=== PATIENT | male | born 1995 | race Caucasian/White ===

== ENCOUNTER 2020-09-13 19:15 | Inpatient (IN) ==
[2020-09-13] MEDS ORDERED: KETOROLAC TROMETHAMINE 15 MG/ML VIAL IV ONE (19:40)
[2020-09-13] MEDS ORDERED: SODIUM CHLORIDE 0.9% 1000ML 2,000 ML IV ONE ×2 (19:40→20:22)
[2020-09-13] MEDS ORDERED: ONDANSETRON INJ 2 MG/ML 2 ML VIAL IV STA ×3 (19:40→21:23)
[2020-09-13] MEDS ORDERED: MoRPHine SULFATE 10 MG/ML CARP/VIAL IV STA (19:46)
--- NOTE | 2020-09-13 19:50 | Emergency Department Note ---
Impression & Plan Renal colic, Kidney stone, Hydronephrosis, Vomiting, Acute hypokalemia ED Provider Note NAME: FRIDA ESCOBEDO AGE: 24 SEX: M : 1995 ARRIVES VIA: Walk-In INFORMANT: Patient ED PROVIDER(S): Fei Taylor DO CHIEF COMPLAINT: Right flank pain HPI: Patient is a 24-year-old male who presents to the ER for right flank pain. This started today around 5 PM. It is radiating out from the back to the right side and goes down to the testicle. He has had 2 kidney stones before. This feels consistent with his previous stones. He admits to nausea and vomiting. Pain is a 9 out of 10. Sharp and stabbing in nature. No other exacerbating or remitting factors. No fevers. No dysuria, urgency or frequency. ROS: See above HPI for pertinent positives & negatives. A total of 10 systems reviewed and were otherwise negative. PAST MEDICAL HISTORY:See Below PAST SURGICAL HISTORY:See Below FAMILY HISTORY:See Below SOCIAL HISTORY:See Below HOME MEDICATIONS:See Below ALLERGIES:See Below VITALS:See Below PHYSICAL EXAMINATION: GENERAL: Sitting up in bed, alert, significant distress, pale EYE EXAM: normal conjunctiva. OROPHARYNX: Mask in place LUNGS: Clear to auscultation. Normal chest wall mechanics HEART: no murmurs, S1 normal and S2 normal ABDOMEN: abdomen soft, non-tender, normo-active bowel sounds, no masses, no rebound or guarding. BACK: Back is symmetrical on inspection and there is no deformity, no midline tenderness, no CVA tenderness. UPPER EXTREMITIES: upper extremities are grossly normal. LOWER EXTREMITIES: No pitting edema. NEURO EXAM: Normal sensorium, cranial nerves II-XII grossly intact, normal speech, no gross weakness of arms, no gross weakness of legs. MEDICAL DECISION MAKING: Patient is a 24-year-old male who presents the ER for severe right flank pain. History of previous kidney stones. IV was established blood work was obtained. Labs show no significant leukocytosis or anemia. BMP with mild hypokalemia. LFTs bilirubin and lipase is unremarkable. Patient was given 3 separate rounds of narcotics as well as Zofran and fluids. He still continued to have a significant on the pain to be extremely nauseated. He was also given IV Toradol. He was discussed with Torsten from urology as well as the hospitalist for further evaluation. Patient was updated bedside. He was Covid tested. Triage Nursing notes reviewed. Limited review of prior medical records performed Vital Signs: reviewed and remarkable for no significant abnormalities Differential diagnosis: Differential diagnoses includes but is not limited to gastritis, peptic ulcer disease, GERD, gallbladder disease, pancreatitis, small bowel obstruction, acute coronary syndrome, pericarditis, ischemic bowel, irritable bowel disease, irritable bowel syndrome, appendicitis, diverticulitis, malignancy, hernia, urinary tract infection, torsion, perforation, trauma, infectious. ER treatment provided: See below Diagnostics interpreted by me: ECG: none Cardiac Monitoring: An order was placed for continuous cardiac monitoring. The monitor shows a rate of 71 with sinus rhythm. Laboratory studies: As stated above and show below. Imaging studies: CT abdomen pelvis shows 5 x 3 mm proximal Consultation(s): Discussed with hospitalist for further evaluation Discussed with Torsten Pollack from urology Procedures: none Critical Care: None Past Med/Surg History Medical History (Updated 09/13/20 @ 21:44 by Fei Taylor DO) Kidney stone Surgical History No pertinent past surgical history Family History Other No pertinent family history in first degree relatives Social History Smoking Status: Never smoker Hx Alcohol Use: Yes Preferred Language: Indonesian current occupational status: student Feels Safe at Home: Yes Allergies Allergies Allergy/AdvReac Type Severity Reaction Status Date / Time No Known Allergies Allergy Verified 09/13/20 21:03 Home Meds Home Medications Medication Instructions Recorded Confirmed multivitamin 1 tab PO DAILY 07/31/19 09/13/20 Results & Data (ED) Vital Signs Vital Signs - 24 hr 09/13/20 19:34 09/13/20 19:54 Temperature 36.9 C Temperature Source Oral Pulse Rate 72 Respiratory Rate 18 Blood Pressure 132/84 Blood Pressure Mean 100 Blood Pressure Position Sitting Pulse Oximetry 96 99 Oxygen Delivery Method Room Air Sepsis Recent Fever Within 48 Hours No Sepsis New/Unexplained Change in Mental Status N/A Sepsis Action Taken by Nursing No Action Required Laboratory Data Result diagrams: 09/13/20 19:47 09/13/20 19:47 Lab Results 09/13/20 09/13/20 Range/Units 19:47 19:47 WBC 8.27 (4.8-10.8) K/uL RBC 5.31 (4.7-6.1) M/uL Hgb 16.1 (14.0-18.0) g/dL Hct 43.9 (42-52) % MCV 82.7 (80-100) fL MCH 30.3 (25-34) pg MCHC 36.7 H (32-36) g/dL RDW Std Deviation 36.1 L (36.4-46.3) fL RDW Coeff of Starr 12.0 (11.5-14.5) % Plt Count 217 (130-400) K/uL MPV 10.0 (7.4-10.4) fL Immature Gran % (Auto) 0.1 % Neut % (Auto) 75.3 % Lymph % (Auto) 18.1 % [place] % (Auto) 5.6 % Eos % (Auto) 0.8 % Baso % (Auto) 0.1 % Neut # (Auto) 6.22 (1.4-6.5) K/uL Lymph # (Auto) 1.50 (1.2-3.4) K/uL Madison # (Auto) 0.46 (0.11-0.59) K/uL Eos # (Auto) 0.07 (0-0.5) K/uL Baso # (Auto) 0.01 (0-0.2) K/uL Immature Gran # (Auto) 0.01 (0.00-0.02) K/uL Sodium 140 (136-145) mmol/L Potassium 3.3 L (3.5-5.1) mmol/L Chloride 107 (98-107) mmol/L Carbon Dioxide 28 (21-32) mmol/L Anion Gap 5.0 (3-11) BUN 16 (7-18) mg/dl Creatinine 1.17 (0.6-1.4) mg/dl Est Cr Clr Drug Dosing 103.7 ml/min Est GFR ( Amer) 100.5 Est GFR (Non-Af Amer) 86.7 BUN/Creatinine Ratio 13.3 (10-20) Glucose 109 H (70-99) mg/dl Calcium 9.7 (8.5-10.1) mg/dl Total Bilirubin 0.9 (0.2-1) mg/dl AST 15 (15-37) U/L ALT 28 (12-78) U/L Alkaline Phosphatase 61 (45-117) U/L Total Protein 8.5 H (6.4-8.2) gm/dl Albumin 4.9 (3.4-5.0) gm/dl Globulin 3.6 (2.5-4.0) gm/dl Albumin/Globulin Ratio 1.4 (0.9-2) Lipase 95 (73-393) U/L Administered Medications Sodium Chloride (Nss 1000ml) 2,000 mls @ 999 mls/hr IV .Q2H1M ONE Stop: 09/13/20 22:22 Last Admin: 09/13/20 21:43 Dose: 999 mls/hr Documented by: [id number] Discontinued Medications Hydromorphone HCl (Hydromorphone Inj 0.5 Mg/0.5 Ml Syr) 0.5 mg IV NOW STA Stop: 09/13/20 21:55 Last Admin: 09/13/20 22:02 Dose: 0.5 mg Documented by: [id number] Sodium Chloride (Nss 1000ml) 2,000 mls @ 999 mls/hr IV .Q2H1M ONE Stop: 09/13/20 21:40 Last Infusion: 09/13/20 21:38 Dose: 0 mls/hr Documented by: [id number] Admin: 09/13/20 19:51 Dose: 999 mls/hr Documented by: [id number] Ketorolac Tromethamine (Ketorolac Tromethamine 15 Mg/Ml Vial) 15 mg IV NOW ONE Stop: 09/13/20 19:41 Last Admin: 09/13/20 19:51 Dose: 15 mg Documented by: [id number] Metoclopramide HCl (Metoclopramide Hcl Inj 5 Mg/Ml 2 Ml Vial) 5 mg IV ONE ONE Stop: 09/13/20 21:55 Last Admin: 09/13/20 22:03 Dose: 5 mg Documented by: [id number] Morphine Sulfate (Morphine Sulfate 10 Mg/Ml Carp/Vial) 6 mg IV NOW STA Stop: 09/13/20 19:47 Last Admin: 09/13/20 19:51 Dose: 6 mg Documented by: [id number] Morphine Sulfate (Morphine Sulfate 4 Mg/Ml 1 Ml Carp\Vial) 4 mg IV NOW STA Stop: 09/13/20 20:45 Last Admin: 09/13/20 20:52 Dose: 4 mg Documented by: [id number] Morphine Sulfate (Morphine Sulfate 4 Mg/Ml 1 Ml Carp\Vial) 6 mg IV NOW STA Stop: 09/13/20 21:24 Last Admin: 09/13/20 21:38 Dose: 6 mg Documented by: [id number] Ondansetron HCl (Ondansetron Inj 2 Mg/Ml 2 Ml Vial) 4 mg IV NOW STA Stop: 09/13/20 19:41 Last Admin: 09/13/20 19:51 Dose: 4 mg Documented by: [id number] Ondansetron HCl (Ondansetron Inj 2 Mg/Ml 2 Ml Vial) 4 mg IV NOW STA Stop: 09/13/20 20:45 Last Admin: 09/13/20 20:52 Dose: 4 mg Documented by: [id number] Ondansetron HCl (Ondansetron Inj 2 Mg/Ml 2 Ml Vial) 4 mg IV NOW STA Stop: 09/13/20 21:24 Last Admin: 09/13/20 21:45 Dose: Not Given Documented by: [id number] Discharge Plan Visit Data Chief Complaint: Kidney Stone Stated Complaint: KIDNEY STONES ED Provider: Fei Taylor Discharge Problem: Renal colic, Kidney stone, Hydronephrosis, Vomiting, Acute hypokalemia Forms Stand Alone Forms: [employer] Prescriptions Prescriptions: No Action multivitamin Tablet 1 tab PO DAILY RF: 0 Discharge Problem: Hydronephrosis Qualifiers: Hydronephrosis type: unspecified Qualified Code(s): N13.30 - Unspecified hydronephrosis Vomiting Qualifiers: Vomiting type: unspecified Vomiting Intractability: unspecified Nausea presence: unspecified Qualified Code(s): R11.10 - Vomiting, unspecified
[2020-09-13 20:00] LABS: Basophils # (auto) 0.01 K/uL (0-0.2); Basophils % (auto) 0.1 %; Eosinophils # (auto) 0.07 K/uL (0-0.5); Eosinophils % (auto) 0.8 %; Hematocrit (blood only) 43.9 % (42-52); Hemoglobin 16.1 g/dL (14.0-18.0); Immature Granulocytes # (auto) 0.01 K/uL (0.00-0.02); Immature Granulocytes % (auto) 0.1 %; Lymphocytes % (auto) 18.1 %; Mean Corpuscular Hemoglobin 30.3 pg (25-34); Mean Corpuscular Hgb Conc 36.7 g/dL (32-36); Mean Corpuscular Volume 82.7 fL (80-100); Monocytes # (auto) 0.46 K/uL (0.11-0.59); Monocytes % (auto) 5.6 %; Neutrophils # (auto) 6.22 K/uL (1.4-6.5); Neutrophils % (auto) 75.3 %; Platelet Count 217 K/uL (130-400); RDW Standard Deviation 36.1 fL (36.4-46.3); Red Blood Count 5.31 M/uL (4.7-6.1); White Blood Count 8.27 K/uL (4.8-10.8)
[2020-09-13 20:18] LABS: Albumin Level 4.9 gm/dl (3.4-5.0); BUN Creatinine Ratio 13.3 (10-20); Calcium 9.7 mg/dl (8.5-10.1); Creatinine Clr Calc Pharmacy 103.7 ml/min; Est GFR (African American) 100.5; Est GFR (Non-African American) 86.7; Potassium 3.3 mmol/L (3.5-5.1)
[2020-09-13 20:21] LABS: Albumin Globulin Ratio 1.4 (0.9-2); Bilirubin,Total 0.9 mg/dl (0.2-1); Globulin 3.6 gm/dl (2.5-4.0); Total Protein 8.5 gm/dl (6.4-8.2)
--- NOTE | 2020-09-13 20:34 | CT Scan Report ---
CT OF THE ABDOMEN AND PELVIS WITHOUT CONTRAST CLINICAL HISTORY: Flank pain. COMPARISON STUDY: CT of the abdomen and pelvis January 22, 2020. Right upper quadrant ultrasound February. TECHNIQUE: Axial images of the abdomen and pelvis were obtained without IV contrast. Images were revi ewed in the axial, sagittal, and coronal planes. Automated exposure control was utilized for the juju dy. A dose lowering technique was utilized adhering to the principles of ALARA. FINDINGS: Lung bases are unremarkable. A 5 mm x 3 mm proximal right ureteral calculus results in mild hydronephrosis. Evaluation of the remainder of the abdomen and pelvis is suboptimal on this unenhanc ed examination. The liver, spleen, adrenal glands and pancreas are unremarkable. There is a splenule. There is no biliary or pancreatic ductal dilatation. No peripancreatic or pericholecystic infiltrati on is present. The appendix is normal. The caliber of small and large bowel is normal. There is no as cites. No lymphadenopathy is present. No acute fracture or suspicious lesion is identified within the visualized skeletal structures. Pelvic calcifications reflect phleboliths. There is a possible punct ate calculus within the lower pole of the right kidney. IMPRESSION: 1. 5 mm x 3 mm proximal right ureteral calculus which results in mild hydronephrosis. 2. Possible punctate calculus within the lower pole of the right kidney. ACT 112: Negative or not required by law. Electronically signed by: Isaías Sheth M.D. 09/13/2020 8:33 PM
[2020-09-13] MEDS ORDERED: MoRPHine SULFATE 4 MG/ML 1 ML CARP\\VIAL IV STA ×2 (20:44→21:23)
[2020-09-13] MEDS ORDERED: LACTATED RINGER'S 1,000 ML IV ONE (21:44)
[2020-09-13] MEDS ORDERED: HYDROmorphone INJ 0.5 MG/0.5 ML SYR IV STA (21:54)
[2020-09-13] MEDS ORDERED: METOCLOPRAMIDE HCL INJ 5 MG/ML 2 ML VIAL IV ONE (21:54)
--- NOTE | 2020-09-13 22:16 | Urology Consultation ---
Date of Consultation September 13, 2020 Assessment & Plan (1) Renal colic: I discussed with the emergency room physician. Plan is to have medical service admit the patient. We would recommend proceeding in the following manner: Continue hydration measures Place on Flomax to help expel kidney stone Continue to provide analgesics Continue to provide antiemetics Make patient n.p.o. after midnight until determination made about possible surgical intervention. History of Present Illness Reason for Consultation: Kidney stone History of Present Illness This is a 24-year-old male who says he was in his usual state of health until about 5:00 PM earlier this evening. He notes that since that time he has had a stabbing pain in his right flank that radiates down his back. He has not had any fevers but has occasional shakes. He denies any cough. He has had associated nausea and vomiting. He does report a previous history of kidney stone on the right side. He notes that this was at least 3 years ago and notes that he was able to successfully pass the kidney stone without intervention. He does feel that the pain he is experiencing at this time is much worse. He presented to the emergency department due to the above-noted complaints. Labs including a CBC where his white blood cell count, hemoglobin, hematocrit, and platelet count were all noted to be within normal range. Was noted to be afebrile. He was not hypotensive. Chemistry profile showed his sodium was 140, potassium 3.3, and his BUN and creatinine were both within the normal range. A Covid test has been ordered and is pending. CT scan of the abdomen pelvis was performed that did show a 5 mm x 3.3 mm proximal right ureteral calculus resulting in mild hydronephrosis. Spite numerous doses of intravenous analgesics and antiemetics the patient was unable to get comfortable enough prompting request for admission by the emergency room physician. He has noted that he has contacted the hospitalist for admission and they have subsequently requested a urology consultation. At the time of my interview the patient was experiencing right flank pain. Allergies Allergy/AdvReac Type Severity Reaction Status Date / Time No Known Allergies Allergy Verified 09/13/20 21:03 Home Medications Medication Instructions Recorded Confirmed Type multivitamin 1 tab PO DAILY 07/31/19 09/13/20 History Patient History Medical History Kidney stone Surgical History No pertinent past surgical history Family History Other No pertinent family history in first degree relatives Social History Smoking Status: Never smoker Hx Alcohol Use: Yes Preferred Language: Cuban current occupational status: student Feels Safe at Home: Yes Review of Systems Constitutional: no fever and no chills Eyes: no diplopia Ear, Nose, Mouth, Throat: no ear pain Respiratory: no cough and no dyspnea Cardiovascular: no chest pain Gastrointestinal: + nausea and + vomiting Genitourinary: + flank pain (Right sided) Musculoskeletal: + back pain (Right flank) Integumentary: no rash Neurologic: no localized weakness Physical Exam Constitutional: well developed and well nourished Eyes: no conjunctival abnormality ENMT: Ears: no hearing impairment Neck: trachea midline Respiratory: normal respiratory effort; no respiratory distress and no labored breathing Breath sounds slightly decreased at bases Cardiovascular: Rate/Rhythm: regular rate and regular rhythm Gastrointestinal (Abdomen): Percussion/Palpation: abdomen soft; abdomen nontender Right CVA tenderness noted with percussion Skin: no rashes, warm and dry Neurologic: moves all extremities Results & Data ([facility]) Vital Signs (Past 12 Hours) Vital Signs Temp Pulse Resp BP Pulse Ox 09/13/20 19:54 99 09/13/20 19:34 36.9 C 72 18 132/84 96 PG Care Time/CCT Total # of Minutes Spent Total Time Spent with Patient: Total time spent is greater than 50% in coordination of care (as documented) at patient's floor/unit and/or counseling patient: Coding Level of Care Code 13181 Inpt Consult Level 5 Diagnoses Renal colic N23
[2020-09-13] MEDS ORDERED: HYDROmorphone INJ 1 MG/ML SYRINGE IV STA (22:36)
[2020-09-13] MEDS ORDERED: TAMSULOSIN HCL 0.4 MG CAP PO ONE (22:54)
--- NOTE | 2020-09-13 23:01 | History & Physical Report ---
Date of Service September 13, 2020 Assessment & Plan (1) Kidney stone: 22-year-old male with a past medical history significant for previous nephrolithiasis admitted for intractable right flank pain secondary to right sided renal stone causing hydronephrosis. Right renal stone: On arrival with right-sided flank pain and difficulty urinating. CTAP shows 5 x 3 mm proximal right ureteral calculus causing mild hydronephrosis. With significant pain despite several doses of morphine and low-dose Dilaudid. Tylenol scheduled, Dilaudid 1 mg IV every 4 hours as needed moderate to severe pain. Urology consult placed, appreciate recommendations. No emergent intervention, urology will see in the morning. N.p.o. for potential intervention. We will start Flomax, LR at 125 mL/hr. No findings on UA suggestive of infection, urine culture ordered. No IV antibiotics at this time. CODE STATUS: Full code FEN GI: N.p.o. for potential urologic intervention, LR at 125 mL/hr DVT prophylaxis: Ad radha. on demand, SCDs while in bed Dispo: MedSurg for pain control, IV fluids, urology consult in a.m. (2) Hydronephrosis: History of Present Illness Chief Complaint: Right-sided flank pain Primary Care Provider: Nevin Polk DO 22-year-old male with a past medical history significant for previous nephrolithiasis presents for right-sided flank pain, difficulty urinating, and nausea since about 5 PM today. Has had kidney stones in the past but reports that the pain is significantly worse during this episode. Does not have any associated fevers or chills, shortness of breath, chest pain, abdominal pain, dysuria, hematuria, urinary urgency or frequency. Regards to his difficulty urinating, he states that he "cannot pee". ER course has included a CT PE which showed 5 mm x 3 mm proximal right ureteral calculus resulting in mild hydronephrosis. No leukocytosis on lab work, UA without findings suggestive of infection, urine culture sent. Of note, the patient has received fairly large amounts of IV morphine and Dilaudid 0.5 mg x 2 without much relief. Allergies Allergy/AdvReac Type Severity Reaction Status Date / Time No Known Allergies Allergy Verified 09/13/20 21:03 Home Medications Medication Instructions Recorded Confirmed Type multivitamin 1 tab PO DAILY 07/31/19 09/13/20 History oxycodone-acetaminophen [Percocet] 1 tab PO Q6H PRN #10 tab 09/14/20 Rx tamsulosin 0.4 mg PO QAM 7 Days #7 cap 09/14/20 Rx Past Med/Surg History Medical History (Updated 09/14/20 @ 09:50 by JANEY Armijo) Kidney stone Surgical History No pertinent past surgical history Family History Other No pertinent family history in first degree relatives Social History Smoking Status: Never smoker Hx Alcohol Use: No Preferred Language: Italian Communication Ability: Effective Pipe Connector Required: No Beliefs That Will Affect Care: None Current Living Situation: Alone current occupational status: student Feels Safe at Home: No Assistive Devices: None Review of Systems Review of Systems: All systems reviewed & are unremarkable except as noted in HPI & below Constitutional: no fever, no chills and no malaise Respiratory: no cough and no dyspnea Cardiovascular: no chest pain, no palpitations and no edema Gastrointestinal: no abdominal pain, no constipation and no diarrhea/loose stools Genitourinary: + flank pain (Extends down around the right pelvis into right t esticular area) Physical Exam Constitutional: WD/WN, vitals as above Uncomfortable appearing, but nontoxic Eyes: PERRL, conjunctivae normal, anicteric sclerae ENMT: external ear and nose normal, oropharynx normal Neck: normal visual inspection Respiratory: normal respiratory effort, lungs clear to auscultation Cardiovascular: RRR, no murmur, no edema Gastrointestinal (Abdomen): normal bowel sounds, soft, nontender, no hepatosplenomegaly Musculoskeletal: no cyanosis or clubbing, extremities motor strength 5/5 Skin: no rashes, warm and dry Neurologic: AAOx3, normal speech. No tremor. No gross sensory or motor deficits. Psychiatric: Orientation: alert and oriented x 3 Affect: + anxious affect Results & Data Results & Data ([facility]) Vital Signs (Past 12 Hours) Vital Signs Temp Pulse Resp BP Pulse Ox 09/13/20 22:08 76 16 123/61 98 09/13/20 21:00 61 19 122/70 96 09/13/20 19:54 99 09/13/20 19:34 36.9 C 72 18 132/84 96 Code Status & VTE Plan VTE Prophylaxis Plan VTE Prophylaxis will be ordered: Yes Supervising Physician Co-Signing Physician Notes Attending addendum: I have physically seen this patient, have supervised the medical residents activities, and agree with the H&P unless as otherwise noted. Assessment and Plan: 5 x 3 mm proximal right ureteral calculus/mild right hydroureteronephrosis- NPO Follow urine culture and sensitivity Empiric ceftriaxone 1 g IV daily Dilaudid 1 mg IV every 4 hours as needed severe pain LR at 125 mils per hour Consult urology Remaining orders and notations as noted Resident Activity Tracking Resident Involvement: Resident Care Provided Care Provided: Adult Hospital Medicine (1) Hydronephrosis Hydronephrosis type: unspecified Qualified Code(s): N13.30 - Unspecified hydronephrosis
[2020-09-13] MEDS ORDERED: ONDANSETRON INJ 2 MG/ML 2 ML VIAL IV PRN (23:59)
[2020-09-13] MEDS ORDERED: ACETAMINOPHEN 1000 MG/100 ML IV IV SCH (23:59)
[2020-09-13] MEDS ORDERED: ACETAMINOPHEN 325 MG TAB PO PRN (23:59)
[2020-09-14] MEDS ORDERED: INFLUENZA VIRUS QUAD VACCINE 0.5 ML SYR IM ONE (00:27)
[2020-09-14] MEDS ORDERED: HYDROmorphone INJ 1 MG/ML SYRINGE IV PRN (00:27)
[2020-09-14] MEDS ORDERED: INFLUENZA ADMINISTRATION CHARGE ONE (00:27)
[2020-09-14] MEDS: LACTATED RINGER'S 1,000 ML IV SCH ×2 (00:40→08:42)
[2020-09-14] MEDS: ACETAMINOPHEN 1,000 MG/100 ML VIAL IV SCH ×2 (00:45→08:41)
[2020-09-14 06:08] LABS: Appearance Urine Clear (Clear); Bilirubin Urine Negative (Negative); Blood Urine 3+ (Negative); Color Urine Yellow; Glucose Urine UA Negative (Negative); Ketones Urine 1+ (Negative); Leukocyte Esterase Urine Negative (Negative); Nitrite Urine Negative (Negative); Protein Urine Negative (Negative); Specific Gravity Urine 1.025 (1.000-1.030); Urobilinogen Urine Negative (Negative)
[2020-09-14 06:14] LABS: Amphetamines+Metham, Urine Neg (Neg); Barbiturates, Urine Neg (Neg); Benzodiazepine, Urine Neg (Neg); Cocaine, Urine Neg (Neg); MDMA (Ecstacy), Urine Neg (Neg); Methadone, Urine Neg (Neg); Opiate, Urine Pos (Neg); Phencyclidine, Urine Neg (Neg)
[2020-09-14 06:30] LABS: Bacteria Urine Negative (Negative); Epithelial Cell Urine 0-5 /lpf (0-5); WBC Urine 0-5 /hpf (0-5)
--- NOTE | 2020-09-14 07:12 | Hospitalist Progress Note ---
Date of Service September 14, 2020 Assessment & Plan Admission and Anticipated Discharge Date Admission Date: September 13, 2020 Results & Data Results & Data ([facility]) Vital Signs (Past 12 Hours) Vital Signs Temp Pulse Pulse Resp BP BP Pulse Ox 09/14/20 03:09 36.6 C 75 17 114/74 96 09/14/20 00:10 81 09/13/20 23:50 36.5 C 67 20 119/78 95 09/13/20 22:30 83 19 118/72 96 09/13/20 22:08 76 16 123/61 98 09/13/20 21:00 61 19 122/70 96 09/13/20 19:54 99 09/13/20 19:34 36.9 C 72 18 132/84 96
[2020-09-14] MEDS ORDERED: TAMSULOSIN HCL 0.4 MG CAP PO SCH (09:00)
--- NOTE | 2020-09-14 09:06 | XRay Report ---
KUB CLINICAL HISTORY: Right ureteral stone. FINDINGS: 2 AP supine abdominal radiographs are correlated with abdominal CT dated 09/13/2020. There is a nonobstructed abdominal bowel gas pattern. No calcifications are seen projecting over either kidne y or along the course of the ureters. The small right ureteral calculus seen on yesterday's CT scan i s not clearly visualized. Numerous phleboliths are noted in the pelvis. The bony structures appear in tact. IMPRESSION: 1. No renal or ureteral calculi are identified. 2. The small right ureteral stone seen on yesterday's CT scan was not visualized. Electronically signed by: Tj Hastings M.D. 09/14/2020 9:05 AM
--- NOTE | 2020-09-14 09:48 | Urology Progress Note ---
Date of Service September 14, 2020 Assessment & Plan (1) Calculus of proximal right ureter: (2) Renal colic: 24 year-old male patient admitted with right flank pain with associated n/v secondary to obstructing 5 mm right proximal ureteral calculus. -Patient with improvement in pain and nausea. -Remains afebrile. -Labs reviewed, white count and creatinine stable. Urine not indicative of infection. -KUB without visualization of stone. -Discussed treatment options including surgical intervention while inpatient vs outpatient management with max expulsion therapy. -As his symptoms have improved, he does prefer outpatient management. -Recommend home with Tamsulosin, antiemetics, and pain control. -Continue to strain urine after discharge. -Will arrange follow-up as outpatient with urology service within the next week. -Expected clinical course reviewed with patient. Reviewed in detail signs/symptoms that would warrant return to ER. -He is in agreement with plan, all questions answered. Thank you for allowing us to participate in the acute care of Mr. Aguero. Please reconsult us with additional questions, concerns or changes in patient status. Admission and Anticipated Discharge Date Admission Date: September 13, 2020 Subjective Patient examined at bedside - alert, awake, comfortable. Non-toxic in appearance. Reports his right-sided flank pain has subsided. Has not required any pain medication since around 10:00 pm last evening. Does report feelings of bloating/indigestion. Denies abdominal pain. Denies fevers or chills. Denies dysuria or hematuria. Has had some urinary frequency, denies urgency. He is no longer experiencing nausea, denies vomiting since hospital admission. Has been out of bed without dizziness/lightheadedness. Has been NPO since midnight. Of note, he does have a history of stones, did pass stones spontaneously x2 without surgical intervention. Parents with history of kidney stones. Chart review: Afebrile Wbc 8.27 Hgb 16.1 Creatinine 0.17 Urinalysis not indicative of infection. KUB today reviewed, no visualization of stone. Denies additional urologic concerns today. Review of Systems Constitutional: as per Subjective / HPI; no fever and no chills Gastrointestinal: as per Subjective / HPI; no nausea and no vomiting Genitourinary: + as per Subjective / HPI Physical Exam Constitutional: well developed and well nourished; no acute distress and not i ll appearing Respiratory: normal respiratory effort and able to speak in complete sentences; no respiratory distress and no audible wheezes Gastrointestinal (Abdomen): Inspection/Auscultation: abdomen normal to inspection; abdomen not distended Percussion/Palpation: abdomen soft; abdomen nontender and no guarding Psychiatric: Orientation: alert, oriented x 3 and cooperative Affect: euthymic affect Genitourinary: no CVA tenderness Results & Data ([facility]) Vital Signs (Past 12 Hours) Vital Signs Temp Pulse Pulse Resp BP BP Pulse Ox 09/14/20 07:29 36.8 C 77 18 108/63 94 09/14/20 03:09 36.6 C 75 17 114/74 96 09/14/20 00:10 81 09/13/20 23:50 36.5 C 67 20 119/78 95 09/13/20 22:30 83 19 118/72 96 09/13/20 22:08 76 16 123/61 98 PG Care Time/CCT Total # of Minutes Spent Total Time Spent with Patient: Total time spent is greater than 50% in coordination of care (as documented) at patient's floor/unit and/or counseling patient: Coding Level of Care Code 64932 Subseq Hosp Care Lvl 2 Diagnoses Calculus of proximal right ureter N20.1 Renal colic N23
--- NOTE | 2020-09-14 11:28 | Discharge Summary ---
Date of Service September 14, 2020 Admission HPI Per Admitting Provider 22-year-old male with a past medical history significant for previous nephrolithiasis presents for right-sided flank pain, difficulty urinating, and nausea since about 5 PM today. Has had kidney stones in the past but reports that the pain is significantly worse during this episode. Does not have any associated fevers or chills, shortness of breath, chest pain, abdominal pain, dysuria, hematuria, urinary urgency or frequency. Regards to his difficulty urinating, he states that he "cannot pee". ER course has included a CT PE which showed 5 mm x 3 mm proximal right ureteral calculus resulting in mild hydronephrosis. No leukocytosis on lab work, UA without findings suggestive of infection, urine culture sent. Of note, the patient has received fairly large amounts of IV morphine and Dilaudid 0.5 mg x 2 without much relief. Admission Exam Per Admitting Provider Constitutional: WD/WN, vitals as above Uncomfortable appearing, but nontoxic Eyes: PERRL, conjunctivae normal, anicteric sclerae ENMT: external ear and nose normal, oropharynx normal Neck: normal visual inspection Respiratory: normal respiratory effort, lungs clear to auscultation Cardiovascular: RRR, no murmur, no edema Gastrointestinal (Abdomen): normal bowel sounds, soft, nontender, no hepatosplenomegaly Musculoskeletal: no cyanosis or clubbing, extremities motor strength 5/5 Skin: no rashes, warm and dry Neurologic: AAOx3, normal speech. No tremor. No gross sensory or motor deficits. Psychiatric: Orientation: alert and oriented x 3 Affect: + anxious affect Principal Diagnosis Ureterolithiasis Discharge Exam Constitutional WD/WN, vitals as above Eyes PERRL, conjunctivae normal, anicteric sclerae ENMT external ear and nose normal, oropharynx normal Respiratory normal respiratory effort, lungs clear to auscultation Cardiovascular RRR, no murmur, no edema Gastrointestinal (Abdomen) normal bowel sounds, soft, nontender, no hepatosplenomegaly Genitourinary + CVA tenderness (Right) Discharge Data Allergies Allergy/AdvReac Type Severity Reaction Status Date / Time No Known Allergies Allergy Verified 09/13/20 21:03 Consultations 09/13/20 21:23 ED Decision to Admit Stat 09/14/20 09:10 Consult Urology Routine Ordered Studies 09/13/20 19:40 CT abd pelvis wo con Stat Hospital Course (1) Kidney stone: 22-year-old male with a past medical history significant for previous nephrolithiasis admitted for intractable right flank pain secondary to right sided renal stone causing hydronephrosis. Right renal stone: On arrival with right-sided flank pain and difficulty urinating. CT AP shows 5 x 3 mm proximal right ureteral calculus causing mild hydronephrosis. With significant pain despite several doses of morphine and low-dose Dilaudid. Tylenol scheduled, Dilaudid 1 mg IV every 4 hours as needed moderate to severe pain while inpatient Urology consult placed, appreciate recommendations. KUB in AM without obvious signs of stone, unsure if passage of stone had occurred though none was caught in filter No findings on UA suggestive of infection, urine culture ordered. No IV antibiotics at this time. Patient discharged home with Flomax, Percocet for pain control Follow up with Urology in 1 week. Total Time Total Time Spent Total Time Spent (In Minutes): Less than 30 Discharge Plan Discharge Items Patient Disposition: Home - Self-Care Reason For Visit: INTRACTABLE FLANK PAIN, KIDNEY STONE Discharge Diagnosis: Kidney Stone Activity: Resume your previous activity Non-emergency contact: Primary Care Provider and Urologist Call non-emergency contact if: you have any medication questions, your symptoms worsen and your pain is not controlled Follow-up/Referrals: Hoda Gregg PA-C [Physician Automation/Controls Manager] - 09/19/20 2:00 pm Nevin Polk, [Primary Care Provider] - Diet: Regular Addtl Attending Provider Instructions: Mr. Aguero, It was our pleasure caring for you at [facility] from 09/13 - 09/14/20 for your kidney stone. While inpatient you were given IV pain medications and IV nausea controlling medications. You were evaluated by our Urology service who discussed with you in regards to inpatient vs outpatient treatment of your kidney stone. You had elected to do so outpatient and we feel it is appropriate for you to do so. An Xray the morning of your discharge did not note a stone, it is possible you may have passed it overnight while your urine was not being str ained. Please continue to strain your urine. Please also continue to take the following medications as prescribed: -Tamsulosin (Flomax) 1 tablet daily for the next 7 days or until passage of stone -Percocet 5mg 1 tablet every 6 hours as needed for pain -OTC Aleve or Ibuprofen as noted on the packaging -If not using the Percocet, may use Tylenol 1000mg up to 3 times a day -Please follow up with Urology in 1 week, an appointment will be set up for you. -Please continue to strain your urine until noting passage of stone. Addtl Preventative Maintenance Technician Provider Instructions: Please take all medications as prescribed and keep all follow-ups as scheduled. Please call our office ([facility]) at [phone] with any questions, concerns or need to reschedule appointments for any reason. We are happy to assist you. You were diagnosed with a 4-5 mm right ureteral stone. It is possible this stone will pass without surgical intervention. You have elected trial of passage at this time. During this time: - Your urine may be cloudy or slightly bloody. - You may have some pain. Okay to take Tylenol/Ibuprofen or pain medication as prescribed. - Strain your urine to collect the stone if you do pass it. - Please bring specimen to your follow-up appointment to be studied in the lab, if able. - Recommend hydration as this will help with stone passage. When to call [facility] at [phone]: Fever of 101F or higher Heavy bleeding Pain that is not controlled with medicine Uncontrolled vomiting Problems urinating or inability to urinate Pending Studies at Discharge: No Stand-Alone Forms: My [facility], Work/School Release (Inpt), Smoking Cessation Medications and DC Order Prescriptions: New tamsulosin 0.4 mg Capsule 0.4 mg PO QAM 7 Days Qty: 7 RF: 0 oxycodone-acetaminophen [Percocet] 5-325 mg tablet 1 tab PO Q6H PRN (Reason: pain) Qty: 10 RF: 0 Continued multivitamin Tablet 1 tab PO DAILY RF: 0 Discharge Orders: Discharge Order (Routine); Ordered 09/14/20 Ordered By: Cristino Muniz Admission Data Admit Date/Time: 09/13/20 22:59 Attending Provider: Fei Mohan Admit Provider: Carole Fletcher Primary Care Provider: Nevin Polk Other Providers: Swapnil Angel ; Augustus Calderón Other Interventions: Discharge Summary Assessment (RN) Last Done: 09/14/20 11:48 Supervising Physician Co-Signing Physician Notes I personally examined the patient and verified all dickey points of history and exam, discussed case, and agree with decision making with Dr Muniz. Feeling better. Pain is improved. Able to eat and drink. Wonders about going back to work. Vitals noted, and generally awake and alert pleasant no distress. HEENT normocephalic atraumatic mucous membranes moist. Breathing unlabored no accessory muscle use good effort. Skin shows no rashes no pallor or icterus. Neuro shows no focal deficits. Ureterolithiasis with intractable painpain is improved. Is questionable whether or not the stone is passed, but it seems that it is possible. In any rate his pain is controlled well enough that he could easily go home on p.o. pain meds with expectant management. Red flags outlined, stable for home. Otherwise as above. Resident Activity Tracking Resident Involvement: Resident Care Provided Care Provided: Adult Hospital Medicine
--- NOTE | 2020-09-14 17:53 | Billing Data ---
Date of Service September 14, 2020 Coding Level of Care Code D/C Day Management <30 mins
--- NOTE | 2020-09-14 19:49 | Billing Data ---
Date of Service September 14, 2020 Coding Level of Care Code 82950 Initial Inpt Care Lvl 2
[2020-09-16 15:42] LABS: Codeine Urine NEGATIVE ng/mL (<50); Hydrocodone Urine NEGATIVE ng/mL (<50); Hydromor Urine 447 ng/mL (<50); Morphine Urine 9650 ng/mL (<50); Norhydrocodone Conf Ur NEGATIVE ng/mL (<50); Noroxycodone Urine NEGATIVE ng/mL (<50); Oxycodone Urine NEGATIVE ng/mL (<50); Oxymorph Urine NEGATIVE ng/mL (<50)
== END 2020-09-14 13:59 | disposition home or self-care (01) | DRG 694 ==
LOC: ED 19:15 → SUATTDRO 22:59 → 2N 22:59